=== PATIENT | female | born 1985 | race African-American/Black ===

== ENCOUNTER 2017-05-31 19:04 | Emergency (ER) | payer MEDICAID, OTHER ==
[~2017-05-31] VITALS: Ht 152.4 cm; Wt 75.0 kg
[~2017-05-31 19:04] MED LIST: BACT800T5 PO; CEPH500C3 PO; CYCL-36 PO; LORTA5 PO; MOBI15TA PO
[2017-05-31 19:23] VITALS: BP 140/74; PULSE 88; RESP 18; TEMP 98.8; O2SAT 99
[2017-05-31] MEDS ORDERED: SODIUM CHLORIDE 0.9% FLUSH 10 ML FLUSH IVF PRN (20:15)
[2017-05-31 20:24] VITALS: BP 139/71; PULSE 82; RESP 16; TEMP 97.9; O2SAT 97
--- NOTE | 2017-05-31 20:47 | PD ---
HPI Chief Complaint: Medical Clearance Time Seen by Provider: 20:45 Travel History International Travel<30 days: No Contact w/Intl Traveler<30days: No Traveled to known affect area: No History of Present Illness HPI Patient comes in under police custody complaining of vaginal bleeding in . Patient states she thinks she is approximately 9 weeks . Patient states she had a home test that was faintly positive and then went to a clinic where she had a positive test a few weeks ago. Patient states she began having vaginal bleeding and abdominal cramping yesterday. Patient states she did have large clots passed yesterday but since has been regular menstrual bleeding since just slightly heavier than normal. Patient denies anything making it better or worse. Patient denies any radiation of the pain. Patient reports she is A1. Denies any fevers, nausea, vomiting, loss change in bowel or bladder, shortness of breath, or chest pain. PFSH Past Medical History Blood Disorders: No Cancer: No Cardiovascular Problems: No Diabetes: No Diminished Hearing: No Endocrine: No Immune Disorder: No Musculoskeletal: No Neurologic: No Psychiatric: No Reproductive: No Respiratory: No Thyroid Disease: No ?: LMP: 03/27/17 Past Surgical History Section: Yes Other Surgery: Yes ( X2) Social History Alcohol Use: Yes Tobacco Use: Yes Substance Use: No Allergies-Medications (Allergen,Severity, Reaction): Coded Allergies: No Known Allergies (Unverified , 05/14/16) Reported Meds & Prescriptions Reported Meds & Active Scripts Active Flexeril (Cyclobenzaprine HCl) 10 Mg Tab 1 Tab PO TID Mobic (Meloxicam) 15 Mg Tab 15 Mg PO DAILY Bactrim DS (Sulfamethoxazole-Trimethoprim DS) 1 Tab Tab 1 Tab PO BID Reported Keflex (Cephalexin Monohydrate) 500 Mg Cap 500 Mg PO Q6 Flexeril (Cyclobenzaprine HCl) 10 Mg Tab 10 Mg PO TID [place] 5-325 mg (Hydrocodone-Acetaminophen 5-325 mg) 1 Tab 1 Tab PO Q4H PRN Review of Systems Except as stated in HPI: all other systems reviewed are Neg Physical Exam Narrative GENERAL: Well-developed, overly nourished, in no acute distress, and non-ill appearing. SKIN: Focused skin assessment warm and dry. HEAD: Atraumatic. Normocephalic. EYES: Pupils equal and round. EOMI. No scleral icterus. No injection or drainage. ENT: No nasal bleeding or discharge. Mucous membranes pink and moist. NECK: Trachea midline. Supple. No nuclear rigidity. CARDIOVASCULAR: Regular rate and rhythm. No murmur appreciated. RESPIRATORY: No accessory muscle use. No respiratory distress. Clear to auscultation. Breath sounds equal bilaterally. GASTROINTESTINAL: Abdomen soft, non-tender, nondistended, and without guarding. Hepatic and splenic margins not palpable. Normal bowel sounds 4. No pulsatile mass. MUSCULOSKELETAL: No obvious deformities. No clubbing. No cyanosis. No edema. Full range of motion. NEUROLOGICAL: Awake and alert. No obvious cranial nerve deficits. Motor grossly within normal limits. Normal speech. PSYCHIATRIC: Appropriate mood and affect; insight and judgment normal. Data Data Last Documented VS Vital Signs Date Time Temp Pulse Resp B/P Pulse Ox O2 Delivery O2 Flow Rate FiO2 05/31/17 20:24 97.9 82 16 139/71 97 Room Air Orders Beta Hcg (Quant/Titer) (05/31/17 20:13) Complete Blood Count With Diff (05/31/17 20:13) Basic Metabolic Panel (Bmp) (05/31/17 20:13) Complete Rh (05/31/17 20:13) Urinalysis - C+S If Indicated (05/31/17 20:13) Iv Access Insert/Monitor (05/31/17 20:13) Ecg Monitoring (05/31/17 20:13) Cath For Specimen (05/31/17 20:13) Sodium Chloride 0.9% Flush (Ns Flush) (05/31/17 20:15) Ed Urine Pregnancytest Poc (05/31/17 20:13) Urine Culture (05/31/17 20:20) Labs Laboratory Tests Test 05/31/17 05/31/17 20:20 21:00 White Blood Count 10.4 TH/MM3 Red Blood Count 4.87 MIL/MM3 Hemoglobin 12.5 GM/DL Hematocrit 39.0 % Mean Corpuscular Volume 80.1 FL Mean Corpuscular Hemoglobin 25.7 PG Mean Corpuscular Hemoglobin 32.1 % Concent Red Cell Distribution Width 16.0 % Platelet Count 271 TH/MM3 Mean Platelet Volume 9.1 FL Neutrophils (%) (Auto) 66.2 % Lymphocytes (%) (Auto) 26.3 % Monocytes (%) (Auto) 6.4 % Eosinophils (%) (Auto) 0.9 % Basophils (%) (Auto) 0.2 % Neutrophils # (Auto) 6.9 TH/MM3 Lymphocytes # (Auto) 2.7 TH/MM3 Monocytes # (Auto) 0.7 TH/MM3 Eosinophils # (Auto) 0.1 TH/MM3 Basophils # (Auto) 0.0 TH/MM3 CBC Comment DIFF FINAL Differential Comment Urine Color RED Urine Turbidity CLOUDY Urine pH 5.5 Urine Specific [place] 1.033 Urine Protein 100 mg/dL Urine Glucose (UA) NEG mg/dL Urine Ketones 40 mg/dL Urine Occult Blood LARGE Urine Nitrite NEG Urine Bilirubin NEG Urine Urobilinogen 2.0 MG/DL Urine Leukocyte Esterase TRACE Urine RBC /hpf Urine WBC 31 /hpf Urine Squamous Epithelial 15 /hpf Cells Urine Amorphous Sediment OCC Urine Bacteria FEW /hpf Urine Mucus MANY /lpf Microscopic Urinalysis Comment CULTURE INDICATED Sodium Level 140 MEQ/L Potassium Level 3.7 MEQ/L Chloride Level 105 MEQ/L Carbon Dioxide Level 27.3 MEQ/L Anion Gap 8 MEQ/L Blood Urea Nitrogen 11 MG/DL Creatinine 0.75 MG/DL Estimat Glomerular Filtration 110 ML/MIN Rate Random Glucose 70 MG/DL Calcium Level 9.2 MG/DL Human Chorionic Gonadotropin, LESS THAN 1 Quant MIU/ML Blood Type AB NEGATIVE Rho(D) Type NEGATIVE MDM Medical Decision Making Medical Screen Exam Complete: Yes Emergency Medical Condition: Yes Differential Diagnosis Vaginal bleeding in , threatened miscarriage, miscarriage, ectopic , menorrhagia, menorrhea, other Narrative Course Patient presented with vaginal bleeding and lower abdominal pain and the test is negative. There is no evidence to suggest ectopic nor retained products of conception at this time, nor cervicitis, PID or torsion at this time. There was no evidence to support colitis, diverticulitis, obstruction, abdominal or femoral herniation, volvulus, early appendicitis, or hernial incarceration or strangulation at this time. Patient is stable and no clinical evidence of anemia. I suspect this may be due to regular/irregular menses or DUB possible associated ovarian cyst. Patient was instructed to follow up with MAIN LINE ASSEMBLER. She was given warnings to return if bleeding worsened, felt faint or passed out, fever, worsening pain, inability to tolerate fluids, or as needed. The patient agreed with plan. Patient in no obvious distress upon re-evaluation. All pertinent laboratory result(s) discussed with patient. Suspect urine is contaminated secondary to vaginal bleeding. We'll await cultures. Discussed patient with Dr. Blount prior discharge, who is in agreement with plan of care and disposition. Any questions/concerns in reference to patient diagnosis/condition discussed and clarified prior to patient's discharge. Reinforced sheer importance of close follow up with patient's primary physician or primary care clinic and/or MAIN LINE ASSEMBLER. Instructed patient to return to ED immediately, if symptoms return/worsen. Pt showed understanding of above instructions. Further instructions and recommendations were detailed in discharge paperwork. Pt ambulated without difficulty out of ED at discharge in police custody. Diagnosis Primary Impression: Menorrhagia Qualified Code: N92.1 - Menorrhagia with irregular cycle Ruled Out: [facility] Patient Instructions: General Instructions, Menorrhagia (ED) Additional Instructions: Follow-up with your primary care physician and/or MAIN LINE ASSEMBLER in 2-3 days for reevaluation. Return to the emergency department if symptoms get worse. Disposition: [address] LAW ENFORCEMNT Condition: Stable Julio Johns May 31, 2017 20:47
[2017-05-31 22:14] LABS: BACTERIA, URINE FEW /hpf; BLOOD, URINE LARGE (NEG); COMMENT (UR) CULTURE INDICATED; CULTURE IF INDICATED CULTURE INDICATED; GLUCOSE,URINE NEG (NEG); KETONE, URINE 40 mg/dL (NEG); MUCUS URINE MANY /lpf (OCC); NITRITE,URINE NEG (NEG); PH, URINE 5.5 (5.0-8.5); SQUAMOUS EPITHELIAL CELL URINE 15 /hpf (0-5)
[2017-05-31 22:15] LABS: URINE COLOR RED (YELLW/STRAW)
[2017-05-31 22:19] LABS: AUTOMATED NEUTROPHIL # 6.9 TH/MM3 (1.8-7.7); BASOPHIL % 0.2 % (0.0-2.0); EOSINOPHIL # 0.1 TH/MM3 (0-0.4); EOSINOPHIL % 0.9 % (0.0-4.0); HEMO FLAGS DIFF FINAL; LYMPH % 26.3 % (9.0-44.0); LYMPHOCYTE # 2.7 TH/MM3 (1.0-4.8); MEAN CELL VOLUME 80.1 FL (80.0-100.0); MEAN CORPUSCULAR HEMOGLOBIN 25.7 PG (27.0-34.0); MEAN CORPUSCULAR HGB CONC 32.1 % (32.0-36.0); MONO % 6.4 % (0.0-8.0); NEUT % 66.2 % (16.0-70.0); PLATELET COUNT 271 TH/MM3 (150-450); RED BLOOD COUNT 4.87 MIL/MM3 (4.00-5.30); WHITE BLOOD COUNT 10.4 TH/MM3 (4.0-11.0)
[2017-05-31 22:32] LABS: ANION GAP 8 MEQ/L (5-15); BICARBONATE 27.3 MEQ/L (21.0-32.0); BLOOD UREA NITROGEN 11 MG/DL (7-18); CHLORIDE 105 MEQ/L (98-107); GLOMERULAR FILTRATION RATE 110 ML/MIN (>89); POTASSIUM 3.7 MEQ/L (3.5-5.1); SODIUM (NA) 140 MEQ/L (136-145)
[2017-05-31 22:35] LABS: BETA HCG QUANT LESS THAN 1 MIU/ML (0-5)
== END 2017-05-31 23:10 ==
LOC: NEDAMB 19:04
DX: O46.91 Antepartum hemorrhage, unspecified, first trimester (principal); N92.0 Excessive and frequent menstruation with regular cycle; R10.30 Lower abdominal pain, unspecified; Z79.899 Other long term (current) drug therapy; Z72.0 Tobacco use; Z3A.09 9 weeks gestation of pregnancy; Z34.91 Encounter for supervision of normal pregnancy, unspecified, first trimester
CPT/HCPCS: 80048; 81001; 84702; 84703; 85025; 87086; 99283

== ENCOUNTER 2017-07-18 18:04 | Emergency (ER) | payer MEDICAID, OTHER ==
[~2017-07-18] VITALS: Ht 152.4 cm; Wt 72.0 kg
[2017-07-18 18:07] VITALS: BP 130/88; PULSE 89; RESP 15; TEMP 98.4; O2SAT 99
[2017-07-18] MEDS ORDERED: SODIUM CHLORIDE 0.9% FLUSH 10 ML FLUSH IV FLUSH PRN (19:00)
--- NOTE | 2017-07-18 19:11 | PD ---
HPI Chief Complaint: Related Problem Time Seen by Provider: 18:47 Travel History International Travel<30 days: No Contact w/Intl Traveler<30days: No Traveled to known affect area: No History of Present Illness HPI Patient is a 31-year-old female presents emergency department for evaluation of lower quadrant abdominal cramping for the past 3 days. Patient took 2 tests at home which she states was positive. She is concerned because her test here was read as negative. She states that this happened to her in the past and she was told that she wasn't but then she ended up miscarrying. She denies any vaginal bleeding on multiple questions during this encounter. Denies any nausea vomiting denies diarrhea blood in the stool. States symptoms are fairly mild PFSH Past Medical History Blood Disorders: No Cancer: No Cardiovascular Problems: No Diabetes: No Diminished Hearing: No Endocrine: No Immune Disorder: No Musculoskeletal: No Neurologic: No Psychiatric: No Reproductive: No Respiratory: No Thyroid Disease: No ?: LMP: 05/2017 Past Surgical History Section: Yes Other Surgery: Yes ( X2) Social History Alcohol Use: Yes Tobacco Use: Yes Substance Use: No Allergies-Medications (Allergen,Severity, Reaction): Coded Allergies: No Known Allergies (Unverified , 07/18/17) Reported Meds & Prescriptions Reported Meds & Active Scripts Active Flexeril (Cyclobenzaprine HCl) 10 Mg Tab 1 Tab PO TID Mobic (Meloxicam) 15 Mg Tab 15 Mg PO DAILY Bactrim DS (Sulfamethoxazole-Trimethoprim DS) 1 Tab Tab 1 Tab PO BID Reported Keflex (Cephalexin Monohydrate) 500 Mg Cap 500 Mg PO Q6 Flexeril (Cyclobenzaprine HCl) 10 Mg Tab 10 Mg PO TID [place] 5-325 mg (Hydrocodone-Acetaminophen 5-325 mg) 1 Tab 1 Tab PO Q4H PRN Review of Systems Except as stated in HPI: all other systems reviewed are Neg Physical Exam Narrative GENERAL: Well-developed well-nourished no obvious distress SKIN: Focused skin assessment warm/dry. HEAD: Atraumatic. Normocephalic. EYES: Pupils equal and round. No scleral icterus. No injection or drainage. ENT: No nasal bleeding or discharge. Mucous membranes pink and moist. NECK: Trachea midline. No JVD. CARDIOVASCULAR: Regular rate and rhythm. No murmur appreciated. RESPIRATORY: No accessory muscle use. Clear to auscultation. Breath sounds equal bilaterally. GASTROINTESTINAL: Abdomen soft, non-tender, nondistended. Hepatic and splenic margins not palpable. No rebound no percussive tenderness. MUSCULOSKELETAL: No obvious deformities. No clubbing. No cyanosis. No edema. NEUROLOGICAL: Awake and alert. No obvious cranial nerve deficits. Motor grossly within normal limits. Normal speech. PSYCHIATRIC: Appropriate mood and affect; insight and judgment normal. Data Data Last Documented VS Vital Signs Date Time Temp Pulse Resp B/P (MAP) Pulse Ox O2 Delivery O2 Flow Rate FiO2 07/18/17 20:52 07/18/17 18:07 98.4 89 15 99 Orders Orders Basic Metabolic Panel (Bmp) (07/18/17 18:48) Beta Hcg (Quant/Titer) (07/18/17 18:48) Complete Blood Count With Diff (07/18/17 18:48) Urinalysis - C+S If Indicated (07/18/17 18:48) Iv Access Insert/Monitor (07/18/17 18:48) Ecg Monitoring (07/18/17 18:48) Oximetry (07/18/17 18:48) Sodium Chloride 0.9% Flush (Ns Flush) (07/18/17 19:00) Ed Urine Pregnancytest Poc (07/18/17 18:48) Labs Laboratory Tests Test 07/18/17 19:00 White Blood Count 7.9 TH/MM3 Red Blood Count 4.67 MIL/MM3 Hemoglobin 12.3 GM/DL Hematocrit 38.3 % Mean Corpuscular Volume 82.1 FL Mean Corpuscular Hemoglobin 26.3 PG Mean Corpuscular Hemoglobin Concent 32.0 % Red Cell Distribution Width 16.9 % Platelet Count 244 TH/MM3 Mean Platelet Volume 8.9 FL Neutrophils (%) (Auto) 64.6 % Lymphocytes (%) (Auto) 25.4 % Monocytes (%) (Auto) 8.1 % Eosinophils (%) (Auto) 1.4 % Basophils (%) (Auto) 0.5 % Neutrophils # (Auto) 5.1 TH/MM3 Lymphocytes # (Auto) 2.0 TH/MM3 Monocytes # (Auto) 0.6 TH/MM3 Eosinophils # (Auto) 0.1 TH/MM3 Basophils # (Auto) 0.0 TH/MM3 CBC Comment DIFF FINAL Differential Comment Urine Color YELLOW Urine Turbidity HAZY Urine pH 6.5 Urine Specific [place] 1.026 Urine Protein TRACE mg/dL Urine Glucose (UA) NEG mg/dL Urine Ketones NEG mg/dL Urine Occult Blood NEG Urine Nitrite NEG Urine Bilirubin NEG Urine Urobilinogen 2.0 MG/DL Urine Leukocyte Esterase NEG Urine RBC 1 /hpf Urine WBC 2 /hpf Urine Squamous Epithelial Cells 14 /hpf Urine Amorphous Sediment RARE Urine Bacteria RARE /hpf Urine Mucus FEW /lpf Microscopic Urinalysis Comment CULT NOT INDICATED Blood Urea Nitrogen 10 MG/DL Creatinine 0.67 MG/DL Random Glucose 93 MG/DL Calcium Level 8.6 MG/DL Sodium Level 139 MEQ/L Potassium Level 3.9 MEQ/L Chloride Level 107 MEQ/L Carbon Dioxide Level 26.0 MEQ/L Anion Gap 6 MEQ/L Estimat Glomerular Filtration Rate 125 ML/MIN Human Chorionic Gonadotropin, Quant 23 MIU/ML MDM Medical Decision Making Medical Screen Exam Complete: Yes Emergency Medical Condition: Yes Differential Diagnosis Ectopic , early , abdominal cramping, Rh mismatch. Narrative Course Patient roomed emergency department, completely benign abdomen, I reviewed the test that she brought from home as well as ours here and I'll have a faint positive line. A quantitative hCG was sent and is 23. Given her benign abdomen and this low Quant I recommended that she follow up with her SALES SECRETARY or return to the emergency department in 48 hours for repeat beta hCG. She was offered pain medicine and declined. At this time she is stable for discharge as my index suspicion for ectopic is very low. She is Rh- but at this time and does not have any bleeding. I had offered and recommended a pelvic exam but at this time she declined stating there is no bleeding. She is aware that she will need a program shot should she start bleeding and return to emergency department should this happen. Discussed other return to ED criteria. She stable for discharge at this time. Diagnosis Primary Impression: Abdominal pain affecting Additional Instructions: Recommended return to the emergency department in 48 hours for repeat blood test. Take vitamins available [id number]. Follow-up with an OB/ [facility] KNITTER. Disposition: 01 DISCHARGE HOME Condition: Stable Wan Walker MD Jul 18, 2017 19:11
[2017-07-18 19:18] LABS: AUTOMATED NEUTROPHIL # 5.1 TH/MM3 (1.8-7.7); BASOPHIL % 0.5 % (0.0-2.0); EOSINOPHIL # 0.1 TH/MM3 (0-0.4); EOSINOPHIL % 1.4 % (0.0-4.0); HEMATOCRIT 38.3 % (35.0-46.0); HEMO FLAGS DIFF FINAL; LYMPH % 25.4 % (9.0-44.0); MEAN CELL VOLUME 82.1 FL (80.0-100.0); MEAN CORPUSCULAR HEMOGLOBIN 26.3 PG (27.0-34.0); MONO % 8.1 % (0.0-8.0); NEUT % 64.6 % (16.0-70.0); PLATELET COUNT 244 TH/MM3 (150-450); RED BLOOD COUNT 4.67 MIL/MM3 (4.00-5.30); RED CELL DISTRIBUTION WIDTH 16.9 % (11.6-17.2); WHITE BLOOD COUNT 7.9 TH/MM3 (4.0-11.0)
[2017-07-18 19:31] LABS: BACTERIA, URINE RARE /hpf; BLOOD, URINE NEG (NEG); COMMENT (UR) CULT NOT INDICATED; CULTURE IF INDICATED CULT NOT INDICATED; GLUCOSE,URINE NEG (NEG); KETONE, URINE NEG (NEG); MUCUS URINE FEW /lpf (OCC); NITRITE,URINE NEG (NEG); PH, URINE 6.5 (5.0-8.5); SQUAMOUS EPITHELIAL CELL URINE 14 /hpf (0-5); URINE COLOR YELLOW (YELLW/STRAW)
[2017-07-18 19:35] LABS: POTASSIUM 3.9 MEQ/L (3.5-5.1)
[2017-08-17] MEDS ORDERED: DOXY10TA PO (14:55)
[2017-08-22] MEDS ORDERED: METR500T10 PO (15:31)
[2017-08-22] MEDS ORDERED: PREN1CAP7 PO (16:17)
[2017-08-22] MEDS ORDERED: PREN29TA PO (16:17)
[2017-08-29] MEDS ORDERED: TERC0.4C2 VAGINAL (14:02)
== END 2017-07-18 20:53 | disposition home or self-care (01) ==
LOC: NEPD 18:04
DX: O26.891 Other specified pregnancy related conditions, first trimester (principal); R10.9 Unspecified abdominal pain; O99.331 Smoking (tobacco) complicating pregnancy, first trimester; Z79.899 Other long term (current) drug therapy; Z34.91 Encounter for supervision of normal pregnancy, unspecified, first trimester
CPT/HCPCS: 80048; 81001; 84702; 84703; 85025; 99284

== ENCOUNTER 2017-07-20 11:30 | Emergency (ER) | payer MEDICAID ==
[~2017-07-20] VITALS: Ht 160 cm; Wt 75.0 kg
[2017-07-20 11:31] VITALS: BP 118/75; PULSE 70; RESP 16; TEMP 98.1; O2SAT 99
--- NOTE | 2017-07-20 11:39 | PD ---
Physical Exam Date Seen by Provider: Jul 20, 2017 Time Seen by Provider: 11:38 Narrative 31 YOBF HERE FOR HCG CHECK. NO ABD PAIN ,VAG BLEEDING OR VAG D/C. Data Data Last Documented VS Vital Signs Date Time Temp Pulse Resp B/P (MAP) Pulse Ox O2 Delivery O2 Flow Rate FiO2 07/20/17 11:31 98.1 70 16 118/75 (89) 99 Room Air Orders Orders Beta Hcg (Quant/Titer) (07/20/17 11:34) [facility] Medical Record Reviewed: No Supervised Visit with BLANCA: Yes Solis Pascal Jul 20, 2017 11:38
--- NOTE | 2017-07-20 11:50 | PD ---
HPI Chief Complaint: Paper Roller Problem/Complaint Time Seen by Provider: 11:48 Travel History International Travel<30 days: No Contact w/Intl Traveler<30days: No Traveled to known affect area: No History of Present Illness HPI 31-year-old female presents for hCG recheck after being seen 2 days ago for lower abdominal cramping. She had positive tests at home and then she had a negative UPT here. She was told to come back in 2 days for hCG recheck. Reports having intermittent lower abdominal cramping, but denies at this time. Denies vaginal bleeding, discharge. Denies dysuria. Denies fever, vomiting. Has no other medical complaints. Symptoms are mild in severity. No known allergies. No other modifying factors or associated signs and symptoms. PFSH Past Medical History Blood Disorders: No Cancer: No Cardiovascular Problems: No Diabetes: No Diminished Hearing: No Endocrine: No Immune Disorder: No Musculoskeletal: No Neurologic: No Psychiatric: No Reproductive: No Respiratory: No Immunizations Current: Yes Thyroid Disease: No ?: Past Surgical History Section: Yes Other Surgery: Yes ( X2) Social History Alcohol Use: Yes Tobacco Use: Yes Substance Use: No Allergies-Medications (Allergen,Severity, Reaction): Coded Allergies: No Known Allergies (Unverified , 07/20/17) Reported Meds & Prescriptions Reported Meds & Active Scripts Active No Active Prescriptions or Reported Medications Review of Systems Except as stated in HPI: all other systems reviewed are Neg Physical Exam Narrative GENERAL: Well-nourished, well-developed black female patient, in no acute distress SKIN: Warm and dry. HEAD: Atraumatic. Normocephalic. EYES: Pupils equal and round. No scleral icterus. No injection or drainage. ENT: Mucosa pink and moist. Airway patent. NECK: Trachea midline. CARDIOVASCULAR: Regular rate. RESPIRATORY: No accessory muscle use. GASTROINTESTINAL: Rounded. MUSCULOSKELETAL: No obvious deformities. No clubbing. No cyanosis. No edema. NEUROLOGICAL: Awake and alert. Oriented 3. No obvious cranial nerve deficits. Motor grossly within normal limits. Normal speech. PSYCHIATRIC: Appropriate mood and affect; insight and judgment normal. Data Data Last Documented VS Vital Signs Date Time Temp Pulse Resp B/P (MAP) Pulse Ox O2 Delivery O2 Flow Rate FiO2 07/20/17 11:31 98.1 70 16 118/75 (89) 99 Room Air Orders Orders Beta Hcg (Quant/Titer) (07/20/17 11:34) Labs Laboratory Tests Test 07/20/17 12:00 Human Chorionic Gonadotropin, Quant 69 MIU/ML MDM Medical Decision Making Medical Screen Exam Complete: Yes Emergency Medical Condition: Yes Medical Record Reviewed: Yes Differential Diagnosis HCG rechecked, , elevated serum hCG, decreased serum hCG Narrative Course 31-year-old female presents rates she is G recheck. Her hCG on July 18 was 23. She apparently had 2 positive tests at home and then when she came in for lower abdominal cramping she had a negative urine test. She has no abdominal cramping, vaginal discharge or bleeding at this time. Serum hCG ordered. 1235: HCG 69. Instructed patient to follow up with [facility] or child care coordinator of choice. Instructed patient to follow up with primary care provider. Patient verbalizes understanding and agreement with treatment plan. Patient is medically cleared and stable for discharge. Discussed reasons to return to the emergency department. Patient agrees with treatment plan. The patients vital signs are stable and the patient is stable for outpatient follow- up and treatment. Patient discharged home, stable and in no acute distress. Diagnosis Primary Impression: Elevated serum hCG Referrals: [facility] Documentation Lead Primary Care Physician Patient Instructions: First Trimester (ED), General Instructions Additional Instructions: Follow-up with child care coordinator Follow-up with primary care provider Return to the emergency department really with worsening of symptoms Med/Other Pt SpecificInfo: No Meds Exist/No RX given Scripts No Active Prescriptions or Reported Meds Disposition: 01 DISCHARGE HOME Condition: Stable Idalia Duarte Jul 20, 2017 11:50
[2017-07-20 12:30] LABS: BETA HCG QUANT 69 MIU/ML (0-5)
[2017-08-17] MEDS ORDERED: DOXY10TA PO (14:55)
[2017-08-22] MEDS ORDERED: METR500T10 PO (15:31)
[2017-08-22] MEDS ORDERED: PREN29TA PO (16:17)
[2017-08-22] MEDS ORDERED: PREN1CAP7 PO (16:17)
[2017-08-29] MEDS ORDERED: TERC0.4C2 VAGINAL (14:02)
== END 2017-07-20 12:46 | disposition home or self-care (01) ==
LOC: NEPK 11:30
DX: R74.8 Abnormal levels of other serum enzymes (principal)
CPT/HCPCS: 84702; 99283

== ENCOUNTER 2017-08-01 18:10 | Emergency (ER) | payer MEDICAID ==
[~2017-08-01] VITALS: Ht 152.4 cm; Wt 75.0 kg
[2017-08-01 18:10] VITALS: BP 133/80; PULSE 99; RESP 12; TEMP 98.4; O2SAT 99
[2017-08-01] MEDS ORDERED: PREN29TA PO (18:27)
--- NOTE | 2017-08-01 18:28 | PD ---
HPI Chief Complaint: Related Problem Time Seen by Provider: 18:17 Travel History International Travel<30 days: No Contact w/Intl Traveler<30days: No Traveled to known affect area: No History of Present Illness HPI 31-year-old female , approximately 6 weeks , LMP June 09, here for evaluation of her . The patient reports that she went to [facility] 2 days ago after noticing small amount of vaginal bleeding/ spotting after intercourse. She reports that she had a beta hCG and an ultrasound that showed an early IUP. She was informed by them to return in 48 hours for a recheck. She denies any more vaginal bleeding. No abdominal pain. She is scheduled for her first appointment with her [facility] physician on . [facility] Past Medical History Blood Disorders: No Cancer: No Cardiovascular Problems: No Diabetes: No Diminished Hearing: No Endocrine: No Immune Disorder: No Musculoskeletal: No Neurologic: No Psychiatric: No Reproductive: No Respiratory: No Immunizations Current: Yes Thyroid Disease: No ?: LMP: 06/09/17 Past Surgical History Section: Yes Other Surgery: Yes ( X2) Social History Alcohol Use: Yes Tobacco Use: Yes Substance Use: No Allergies-Medications (Allergen,Severity, Reaction): Coded Allergies: No Known Allergies (Unverified , 07/20/17) Reported Meds & Prescriptions Reported Meds & Active Scripts Active Reported Plus Iron 29-1 mg ( Vit-Iron Carbonyl) 29 Mg Iron-1 Mg Tab 1 Tab PO DAILY Review of Systems Except as stated in HPI: all other systems reviewed are Neg Physical Exam Narrative GENERAL: Well-developed, well-nourished, comfortable, no apparent distress. SKIN: Focused skin assessment warm/dry. HEAD: Atraumatic. Normocephalic. EYES: Pupils equal and round. No scleral icterus. No injection or drainage. ENT: Mucous membranes pink and moist. CARDIOVASCULAR: Regular rate and rhythm. No murmur appreciated. RESPIRATORY: No accessory muscle use. Clear to auscultation. Breath sounds equal bilaterally. GASTROINTESTINAL: Abdomen soft, non-tender, nondistended. MUSCULOSKELETAL: No obvious deformities. No clubbing. No cyanosis. No edema. NEUROLOGICAL: Awake and alert. No obvious cranial nerve deficits. Motor grossly within normal limits. Normal speech. PSYCHIATRIC: Appropriate mood and affect; insight and judgment normal. Data Data Last Documented VS Vital Signs Date Time Temp Pulse Resp B/P (MAP) Pulse Ox O2 Delivery O2 Flow Rate FiO2 08/01/17 19:17 65 18 115/70 (85) 100 Room Air 08/01/17 18:10 98.4 Orders Orders Beta Hcg (Quant/Titer) (08/01/17 18:24) Urinalysis - C+S If Indicated (08/01/17 18:26) Basic Metabolic Panel (Bmp) (08/01/17 18:54) Complete Blood Count With Diff (08/01/17 18:54) Iv Access Insert/Monitor (08/01/17 18:54) Ecg Monitoring (08/01/17 18:54) Oximetry (08/01/17 18:54) Sodium Chlor 0.9% 1000 Ml Inj (Ns 1000 M (08/01/17 18:54) Sodium Chloride 0.9% Flush (Ns Flush) (08/01/17 19:00) Us Pelvis (Ques Pr/Ect)W Trans (08/01/17 ) Labs Laboratory Tests Test 08/01/17 18:31 08/01/17 19:20 Urine Color DARK-YELLOW Urine Turbidity HAZY Urine pH 5.5 Urine Specific [place] 1.034 Urine Protein 30 mg/dL Urine Glucose (UA) NEG mg/dL Urine Ketones 40 mg/dL Urine Occult Blood NEG Urine Nitrite NEG Urine Bilirubin NEG Urine Urobilinogen LESS THAN 2.0 MG/DL Urine Leukocyte Esterase NEG Urine RBC 6 /hpf Urine WBC 1 /hpf Urine Squamous Epithelial Cells 7 /hpf Urine Amorphous Sediment RARE Urine Mucus MANY /lpf Microscopic Urinalysis Comment CULT NOT INDICATED Human Chorionic Gonadotropin, Quant 14109 MIU/ML White Blood Count 8.8 TH/MM3 Red Blood Count 4.46 MIL/MM3 Hemoglobin 11.8 GM/DL Hematocrit 36.2 % Mean Corpuscular Volume 81.2 FL Mean Corpuscular Hemoglobin 26.5 PG Mean Corpuscular Hemoglobin Concent 32.6 % Red Cell Distribution Width 16.4 % Platelet Count 232 TH/MM3 Mean Platelet Volume 8.9 FL Neutrophils (%) (Auto) 73.7 % Lymphocytes (%) (Auto) 17.5 % Monocytes (%) (Auto) 7.2 % Eosinophils (%) (Auto) 1.1 % Basophils (%) (Auto) 0.5 % Neutrophils # (Auto) 6.5 TH/MM3 Lymphocytes # (Auto) 1.5 TH/MM3 Monocytes # (Auto) 0.6 TH/MM3 Eosinophils # (Auto) 0.1 TH/MM3 Basophils # (Auto) 0.0 TH/MM3 CBC Comment DIFF FINAL Differential Comment Blood Urea Nitrogen 8 MG/DL Creatinine 0.68 MG/DL Random Glucose 86 MG/DL Calcium Level 9.3 MG/DL Sodium Level 137 MEQ/L Potassium Level 3.3 MEQ/L Chloride Level 104 MEQ/L Carbon Dioxide Level 25.2 MEQ/L Anion Gap 8 MEQ/L Estimat Glomerular Filtration Rate 123 ML/MIN MDM Medical Decision Making Medical Screen Exam Complete: Yes Emergency Medical Condition: Yes Differential Diagnosis , threatened , inevitable , ectopic Narrative Course I tempted to obtain the patient's records from [facility], however was unsuccessful in doing so, therefore pelvic ultrasound was ordered here to rule out an ectopic . Vital signs reviewed. CBC is unremarkable. BMP is remarkable for potassium 3.3, otherwise unremarkable. UA shows 40 ketones, not suggestive of UTI. Beta hCG is 15,911. Pelvic ultrasound: CONCLUSION: 1. Intrauterine with a crown rump length correlating to a gestational age of 6 weeks and 4 days but no definite heart rate confirmed by the hourly sales staff. The findings raise the possibility of demise and impending . Correlation with serial beta HCG levels is suggested. 2. Small subchorionic hemorrhage measuring 1.9 x 0.9 x 1.0 cm. 3. Small amount of free fluid within the cul-de-sac. 4. Nonvisualization of the right ovary. 5. Unremarkable left ovary. Patient was made aware of all findings. She is resting comfortably. Pelvic rest endorsed. She is stable for discharge home with outpatient follow-up with her [facility] physician as scheduled. She can also return to the emergency department in 48 hours for repeat beta hCG. She was informed on when to return to the emergency Department sooner. She verbalizes understanding and agreement with plan. Diagnosis Primary Impression: First trimester bleeding Referrals: [facility] 3 days Additional Instructions: Follow up with your [facility] physician as scheduled. Return to the emergency department in 48 hours for repeat beta hCG. Return to the emergency Department sooner for worsening symptoms or any other concerns as discussed. Disposition: 01 DISCHARGE HOME Condition: Stable Justin Blount MD Aug 01, 2017 18:28
[2017-08-01 18:46] LABS: BLOOD, URINE NEG (NEG); COMMENT (UR) CULT NOT INDICATED; CULTURE IF INDICATED CULT NOT INDICATED; GLUCOSE,URINE NEG (NEG); KETONE, URINE 40 mg/dL (NEG); MUCUS URINE MANY /lpf (OCC); NITRITE,URINE NEG (NEG); PH, URINE 5.5 (5.0-8.5); SQUAMOUS EPITHELIAL CELL URINE 7 /hpf (0-5); URINE COLOR DARK-YELLOW (YELLW/STRAW)
[2017-08-01] MEDS ORDERED: SODIUM CHLOR 0.9% 1000 ML INJ 1,000 ML IV SCH (18:54)
[2017-08-01] MEDS ORDERED: SODIUM CHLORIDE 0.9% FLUSH 10 ML FLUSH IV FLUSH PRN (19:00)
[2017-08-01 19:14] LABS: BETA HCG QUANT 15911 MIU/ML (0-5)
[2017-08-01 19:17] VITALS: BP 115/70; PULSE 65; RESP 18; O2SAT 100
[2017-08-01 19:26] LABS: AUTOMATED NEUTROPHIL # 6.5 TH/MM3 (1.8-7.7); BASOPHIL % 0.5 % (0.0-2.0); EOSINOPHIL # 0.1 TH/MM3 (0-0.4); EOSINOPHIL % 1.1 % (0.0-4.0); HEMATOCRIT 36.2 % (35.0-46.0); HEMO FLAGS DIFF FINAL; LYMPH % 17.5 % (9.0-44.0); LYMPHOCYTE # 1.5 TH/MM3 (1.0-4.8); MEAN CELL VOLUME 81.2 FL (80.0-100.0); MEAN CORPUSCULAR HEMOGLOBIN 26.5 PG (27.0-34.0); MEAN CORPUSCULAR HGB CONC 32.6 % (32.0-36.0); MONO % 7.2 % (0.0-8.0); NEUT % 73.7 % (16.0-70.0); PLATELET COUNT 232 TH/MM3 (150-450); RED BLOOD COUNT 4.46 MIL/MM3 (4.00-5.30); RED CELL DISTRIBUTION WIDTH 16.4 % (11.6-17.2); WHITE BLOOD COUNT 8.8 TH/MM3 (4.0-11.0)
[2017-08-01 19:50] LABS: BICARBONATE 25.2 MEQ/L (21.0-32.0); POTASSIUM 3.3 MEQ/L (3.5-5.1)
--- NOTE | 2017-08-01 21:32 | RADRPT ---
EXAM DATE/TIME: 08/01/2017 20:27 [place] COMPARISON: No previous studies available for comparison. INDICATIONS : Bleeding. LAB(S): Beta-hC MEDICAL HISTORY : . SURGICAL HISTORY : section. ENCOUNTER: Initial ACUITY: 2 days PAIN SCORE: 0/10 LOCATION: Bilateral pelvis MEASUREMENTS: UTERUS: 10.5 x 5.8 x 5.8 cm ENDOMETRIAL STRIPE: 9 mm RIGHT OVARY: Not visualized cm LEFT OVARY: 4.1 x 2.6 x 1.6 cm FREE FLUID: Yes CROWN RUMP LENGTH: 0.7 cm = 6 WKS 4 DAYS FINDINGS: An intrauterine gestational sac containing a pole and a yolk sac is confirmed. No heart rate is confirmed with certainty by the sheet rock hanger. The pole has a crown rump length correlat ing to a gestational age of 6 weeks and 4 days. The gestional sac size correlates to a gestational a ge of 5 weeks and 4 days. The findings raise the possibility of demise and impending . Correlation with serial beta HCG levels is suggested. Subchorionic hemorrhage is noted and measure s 1.9 x 0.9 x 1.0 cm. Cystic areas are noted within the lower uterine segment/cervix measuring 5 and 4 mm each. The right ovary is not visualized. The left ovary is normal in size and measures 4.1 x 2.6 x 1.6 cm. There is a small collection of free fluid within the cul-de-sac. CONCLUSION: 1. Intrauterine with a crown rump length correlating to a gestational age of 6 weeks and 4 days but no definite heart rate confirmed by the sheet rock hanger. The findings raise the possibili ty of demise and impending . Correlation with serial beta HCG levels is suggested. 2. Small subchorionic hemorrhage measuring 1.9 x 0.9 x 1.0 cm. 3. Small amount of free fluid within the cul-de-sac. 4. Nonvisualization of the right ovary. 5. Unremarkable left ovary. Wan Oneal MD on August 01, 2017 at 21:17 Board Certified Radiologist. This report was verified electronically.
[2017-08-17] MEDS ORDERED: DOXY10TA PO (14:55)
[2017-08-22] MEDS ORDERED: METR500T10 PO (15:31)
[2017-08-22] MEDS ORDERED: PREN29TA PO (16:17)
[2017-08-22] MEDS ORDERED: PREN1CAP7 PO (16:17)
[2017-08-29] MEDS ORDERED: TERC0.4C2 VAGINAL (14:02)
== END 2017-08-01 21:59 | disposition home or self-care (01) ==
LOC: NEPD 18:10
DX: O46.91 Antepartum hemorrhage, unspecified, first trimester (principal); O99.331 Smoking (tobacco) complicating pregnancy, first trimester; Z3A.01 Less than 8 weeks gestation of pregnancy; Z34.91 Encounter for supervision of normal pregnancy, unspecified, first trimester
CPT/HCPCS: 76700; 76817; 80048; 81001; 84702; 85025; 96360; 99285; J7030